=== PATIENT | female | born 1955 | race Caucasian/White ===

== ENCOUNTER 2022-04-02 12:17 | Emergency (ER) | payer MEDICARE, OTHER ==
[~2022-04-02] VITALS: Ht 162.6 cm; Wt 64.9 kg
[~2022-04-02 12:17] MED LIST: HYDR25TA4 PO; METF-440 PO; OMEG1CAP55 PO
--- NOTE | 2022-04-02 12:30 | NUR ---
BIB sister c/o facial scrapes and bilateral knee pain s/p trip and fall -ko. The patient is in room air and denies SOB. Respiration regular and unlabored. Will continue to monitor the patient.
--- NOTE | 2022-04-02 13:00 | NUR ---
Dr Vail at [facility].
--- NOTE | 2022-04-02 13:30 | NUR ---
THE PATIENT IS TAKEN TO CT VIA GURNEY.
--- NOTE | 2022-04-02 13:55 | NUR ---
THE PATIENT IS BACK FROM CT VIA [facility]
[2022-04-02] MEDS ORDERED: TDAP [DIPH/PERTUSSIS/TET] 0.5 ML VIAL IM ONE ×2 (14:00→14:01)
--- NOTE | 2022-04-02 16:00 | NUR ---
Patient discharged to home in stable condition. Written and verbal after care instructions given. Patient verbalizes understanding of instruction. The patient left ER with family member.
[2022-04-02 16:22] VITALS: BP 141/82
== END 2022-04-02 16:00 | disposition home or self-care (01) ==
LOC: ER 12:27
DX: S02.2XXA Fracture of nasal bones, initial encounter for closed fracture (principal); S80.02XA Contusion of left knee, initial encounter; S80.01XA Contusion of right knee, initial encounter; S00.212A Abrasion of left eyelid and periocular area, initial encounter; I10 Essential (primary) hypertension; E11.9 Type 2 diabetes mellitus without complications; F31.9 Bipolar disorder, unspecified; Z86.69 Personal history of other diseases of the nervous system and sense organs; Z79.899 Other long term (current) drug therapy; W01.0XXA Fall on same level from slipping, tripping and stumbling without subsequent striking against object, initial encounter; Y93.01 Activity, walking, marching and hiking; Y92.89 Other specified places as the place of occurrence of the external cause; Y99.8 Other external cause status
CPT/HCPCS: 70450-TC; 70486-TC; 72125-TC; 73564-TC; 90715